=== PATIENT | male | born 2005 | race Two or more races ===

== ENCOUNTER 2024-05-28 20:13 | Emergency (ER) | payer OTHER ==
[~2024-05-28] VITALS: Ht 182.9 cm; Wt 68.2 kg
[2024-05-28 20:17] VITALS: BP 120/65; PULSE 83; RESP 16; TEMP 98.2; O2SAT 100
[2024-05-28] MEDS ORDERED: MAGNESIUM HYDROXIDE SUSPENSION 30 ML UDCUP PO PRN (23:30)
[2024-05-28] MEDS ORDERED: ACETAMINOPHEN 325 MG TABLET PO PRN (23:30)
[2024-05-28] MEDS ORDERED: ZOLPIDEM TARTRATE 5 MG TABLET PO PRN (23:30)
== END 2024-05-29 00:37 | disposition home or self-care (01) ==
LOC: EMS 20:13 → EDH 23:56 → UNDOADMIN 23:56
DX: F15.10 Other stimulant abuse, uncomplicated (principal)
CPT/HCPCS: 99283; 99285; G0378